=== PATIENT | female | born 1995 | race Caucasian/White ===

== ENCOUNTER 2017-05-06 21:39 | Emergency (ER) | payer SELFPAY ==
[~2017-05-06] VITALS: Ht 165.1 cm; Wt 46.7 kg
[~2017-05-06 21:39] MED LIST: BENTYL10 MG PO; CIPRO500 MG PO; PERCOCET 5/31 TABLET PO
[2017-05-06 22:19] LABS: ADD MIUA? YES; BILIRUBIN NEGATIVE; BLOOD MODERATE; COLOR STRAW ((YELLOW)); GLUCOSE (STRIP) NEGATIVE; KETONES NEGATIVE; LEUKOCYTES MODERATE; NITRITE NEGATIVE; PROTEIN (STRIP) NEGATIVE; SPECIFIC GRAVITY 1.006 (1.000-1.030); UROBILINOGEN 0.2 MG/DL (0.2-1.0)
[2017-05-06 22:20] LABS: INTERNAL CONTROL VALID? YES
[2017-05-06 22:30] LABS: BACTERIA NONE SEEN /HPF; CALCIUM OXALATE CRYSTALS 1+ /HPF; EPITHELIAL CELLS 1+ /HPF; MUCUS TRACE /LPF; UCUL ADDED? YES; WHITE BLOOD CELLS 15-20 /HPF (0-5)
[2017-05-06 22:41] LABS: HEMATOCRIT 39.8 % (36.0-46.0); MCH 29.5 PG (29.0-34.0); MCHC 34.2 G/DL (30.0-36.0); MCV 86.3 FL (83-99); MEAN PLAT.VOLUME 10.6 uM^3 (9.5-12.4); PLATELET COUNT 315 K/uL (156-360); RBC DIS.WIDTH-CV 12.4 % (11.8-14.6); RED BLOOD COUNT 4.61 M/uL (3.80-5.20); WHITE BLOOD COUNT 10.5 K/uL (4.1-10.2)
[2017-05-06 22:54] LABS: CHLORIDE 106 mEq/L (99-109); SODIUM 139 mEq/L (136-147)
[2017-05-06 22:56] LABS: GLUCOSE 82 mg/dL (70-99)
[2017-05-06 22:58] LABS: ANION GAP 13 MEQ/L (2-14); TOTAL BILIRUBIN 0.6 mg/dL (0.0-1.0)
[2017-05-06 23:00] LABS: ALKALINE PHOSPHATASE 75 IU/L (3-129); GFR ESTIMATE (CALCULATED) > 59 mL/min/
[2017-05-06 23:01] LABS: UREA NITROGEN (BUN) 11 mg/dL (9-23)
[2017-05-06 23:11] LABS: QUANTITATIVE HCG < 4.0 MIU/ML
[2017-05-06] MEDS ORDERED: KEFLEX500 MG PO (23:14)
[2017-05-06] MEDS ORDERED: ZOFRAN ODT4 MG PO (23:16)
[2017-05-06] MEDS ORDERED: NORCO 5/3251 TABLET PO (23:16)
[2017-05-07 00:20] VITALS: BP 124/97
== END 2017-05-07 00:37 | disposition home or self-care (01) ==
LOC: EME 21:39
PROVIDERS: Physician Assistant
DX: N10 Acute pyelonephritis (principal); Z87.440 Personal history of urinary (tract) infections; F17.200 Nicotine dependence, unspecified, uncomplicated
CPT/HCPCS: 74176; 80053; 81003; 84702; 84703; 85027; 87077; 87086; 87186; 99281; 99284; J0696; J1885; J2405; J7030; J7050